=== PATIENT | female | born 1970 | race Caucasian/White ===

== ENCOUNTER 2017-02-16 11:21 | Emergency (ER) | payer OTHER ==
[~2017-02-16] VITALS: Ht 167.6 cm; Wt 68.4 kg
[~2017-02-16 11:21] MED LIST: ADVAIR DISK1 IN; ALLEGRA30 MG OR; AUGMENTIN875 MG OR; PAXIL30 MG PO
[2017-02-16] MEDS ORDERED: PREDNISONE50 MG PO (12:05)
[2017-02-16] MEDS ORDERED: BACTRIM DS1 TAB PO (12:05)
[2017-02-16] MEDS ORDERED: VENTOLIN HFA IN (13:36)
[2017-02-16 13:44] VITALS: BP 114/75
== END 2017-02-16 13:45 | disposition home or self-care (01) | DRG 203 ==
LOC: ED 11:21
DX: J45.901 Unspecified asthma with (acute) exacerbation (principal); J32.9 Chronic sinusitis, unspecified